=== PATIENT | female | born 1955 ===

== ENCOUNTER → 2023-09-10 15:10 | Outpatient (CLI) | payer OTHER, SELFPAY ==
[2023-09-10 16:11] LABS: Add Manual Diff / Slide Review NO; Basophils Absolute Auto 100 /uL (0-100); Basophils Percent Auto 1.4 % (0-2); Eosinophils Absolute Auto 100 /uL (0-450); Eosinophils Percent Auto 2.1 % (2-4); Hematocrit 40.6 % (36-46); Hemoglobin 13.5 g/dL (12.0-16.0); Lymphocytes Absolute Auto 1600 /uL (1100-4500); Lymphocytes Percent Auto 27.9 % (25-40); Mean Corpuscular HGB Conc 33.3 % (30-36); Mean Corpuscular Hemoglobin 29.9 PG (26-34); Mean Corpuscular Volume 89.8 fL (80-100); Monocytes Absolute Auto 400 /uL (0-900); Monocytes Percent Auto 6.4 % (3-14); Neutrophils Absolute Auto 3500 /uL (1500-7000); Neutrophils Percent Auto 62.2 % (50-75); Platelet Count 227 X10^3/uL (150-400); Red Blood Cell Count 4.52 X10^6/uL (4.0-5.2); Red Cell Distribution Width 13.8 % (11.6-14.8); White Blood Cell Count 5.6 X10^3/uL (4.5-11.0)
[2023-09-10 16:19] LABS: Hemoglobin A1C% w Est Avg Glu 6.3 % (4.0-6.0)
[2023-09-10 16:38] LABS: Alanine Aminotransferase 25 IU/L (<35); Albumin 4.2 g/dL (3.5-5.0); Albumin Globulin Ratio 1.1 (1.0-2.8); Alkaline Phosphatase 70 U/L (38-126); Aspartate Aminotransferase 30 IU/L (14-36); BUN Creatinine Ratio 29.7 (6-22); Bilirubin Total 0.6 mg/dL (0.2-1.3); Blood Urea Nitrogen 22 mg/dL (7-17); Calcium 9.9 mg/dL (8.4-10.2); Carbon Dioxide 25 mmol/L (22-32); Chloride 105 mmol/L (98-107); Cholesterol 188 mg/dL (140-199); Estimated Glomerular Filt Rate > 60 mL/min (>60); Globulin 3.7 g/dL (1.7-4.1); Glucose 135 mg/dL (80-110); HDL Cholesterol 67 mg/dL (40-60); HEMOLYSIS < 15 (0-50); LDL Cholesterol Calculated 106 mg/dL (<100); Potassium 3.7 mmol/L (3.4-5.1); Sodium 140 mmol/L (137-145); Total Protein 7.9 g/dL (6.3-8.2); Triglycerides 74 mg/dL (35-150)
[2023-09-10 16:49] LABS: Vitamin D 25 Hydroxy (D3) 35.1 ng/mL (30.0-100.0)
[2023-09-10 17:21] LABS: Hep C Virus Ab w/Reflex Quant NEGATIVE s/c (NEGATIVE)
[2023-09-10 19:34] LABS: Creatinine Urine Random 92.3 mg/dL
[2023-09-10 19:39] LABS: Microalbumi Creatinin Ratio Ur 29.2 ug/mg CR (<30); Microalbumin Urine Random 2.7 mg/dL (0-1.6)
== END ==
PROVIDERS: PCP Family Medicine; Referring Provider Family Medicine; Visit Provider Family Medicine
DX: Z00.00 Encounter for general adult medical examination without abnormal findings (principal); E55.9 Vitamin D deficiency, unspecified; I10 Essential (primary) hypertension; Z86.73 Personal history of transient ischemic attack (TIA), and cerebral infarction without residual deficits; Z11.59 Encounter for screening for other viral diseases
CPT/HCPCS: 36415; 80053; 80061; 82043; 82306; 82570; 83036; 85025; 86803

== ENCOUNTER → 2025-02-20 09:59 | Outpatient (CLI) | payer MEDICARE, SELFPAY ==
[2025-02-20 10:37] LABS: Add Manual Diff / Slide Review NO; Basophils Absolute Auto 100 /uL (0-100); Basophils Percent Auto 1.1 % (0-2); Eosinophils Absolute Auto 100 /uL (0-450); Eosinophils Percent Auto 1.4 % (2-4); Hematocrit 39.5 % (36-46); Hemoglobin 13.1 g/dL (12.0-16.0); Lymphocytes Absolute Auto 1600 /uL (1100-4500); Mean Corpuscular HGB Conc 33.2 % (30-36); Mean Corpuscular Hemoglobin 29.8 PG (26-34); Mean Corpuscular Volume 89.7 fL (80-100); Monocytes Absolute Auto 500 /uL (0-900); Neutrophils Absolute Auto 4500 /uL (1500-7000); Neutrophils Percent Auto 66.5 % (50-75); Platelet Count 284 X10^3/uL (150-400); Red Cell Distribution Width 13.8 % (11.6-14.8); White Blood Cell Count 6.7 X10^3/uL (4.5-11.0)
[2025-02-20 11:04] LABS: HEMOLYSIS < 15 (0-50); Iron 70 ug/dL (37-170)
[2025-02-20 11:09] LABS: Alanine Aminotransferase 25 IU/L (<35); Albumin 4.3 g/dL (3.5-5.0); Albumin Globulin Ratio 1.4 (1.0-2.8); Alkaline Phosphatase 86 U/L (38-126); Aspartate Aminotransferase 32 IU/L (14-36); BUN Creatinine Ratio 29.4 (6-22); Bilirubin Total 0.9 mg/dL (0.2-1.3); Blood Urea Nitrogen 20 mg/dL (7-17); Calcium 9.8 mg/dL (8.4-10.2); Carbon Dioxide 24 mmol/L (22-32); Chloride 105 mmol/L (98-107); Cholesterol 223 mg/dL (140-199); Estimated Glomerular Filt Rate > 60 mL/min (>60); Glucose 109 mg/dL (80-110); HDL Cholesterol 69 mg/dL (40-60); HEMOLYSIS < 15 (0-50); LDL Cholesterol Calculated 140 mg/dL (<100); Potassium 4.1 mmol/L (3.4-5.1); Sodium 139 mmol/L (137-145); Total Protein 7.3 g/dL (6.3-8.2); Triglycerides 70 mg/dL (35-150)
[2025-02-20 11:16] LABS: Percent Iron Saturation 27 % (15-50); Total Iron Binding Capacity 255 ug/dL (265-497); Transferrin 204 mg/dL (206-381)
[2025-02-20 11:36] LABS: Thyroid Stimulating Hormone 0.582 uIU/mL (0.47-4.68)
[2025-02-20 11:40] LABS: Ferritin 49 ng/mL (11-264)
== END ==
PROVIDERS: PCP Student in an Organized Health Care Education/Training Program; Referring Provider Student in an Organized Health Care Education/Training Program; Visit Provider Student in an Organized Health Care Education/Training Program
DX: I10 Essential (primary) hypertension (principal); D64.9 Anemia, unspecified; E78.00 Pure hypercholesterolemia, unspecified; R73.03 Prediabetes
CPT/HCPCS: 36415; 80053; 80061; 82728; 83540; 83550; 84443; 85025

== ENCOUNTER → 2025-04-04 13:35 | Outpatient (CLI) | payer MEDICARE, SELFPAY ==
--- NOTE | 2025-04-04 13:35 | DI.RAD.S_ITS ---
PROCEDURE: XR CHEST 2V INDICATIONS: Cough TECHNIQUE: 2 views of the chest were acquired. COMPARISON: None. FINDINGS: Surgical changes and devices: None. Lungs and pleura: Lungs are clear. No pleural effusions or pneumothorax. Mediastinum: Mediastinal contours are normal. Heart size is normal. Bones and chest wall: No suspicious bony abnormalities. Soft tissues appear unremarkable. IMPRESSION: No acute cardiopulmonary abnormality is seen. Dictated by: Obi Ren M.D. on 04/05/2025 at 17:06 Approved by: Obi Ren M.D. on 04/05/2025 at 17:07
== END ==
PROVIDERS: PCP Student in an Organized Health Care Education/Training Program; Referring Provider Nurse Practitioner Family; Visit Provider Nurse Practitioner Family
DX: R05.9 Cough, unspecified (principal)
CPT/HCPCS: 71046

== ENCOUNTER → 2025-04-16 09:47 | Outpatient (CLI) | payer MEDICARE, SELFPAY ==
--- NOTE | 2025-04-16 09:48 | DI.RAD.S_ITS ---
PROCEDURE: XR HIP W PEL IF DONE RT 2V INDICATIONS: Right hip pain TECHNIQUE: AP pelvis with lateral view(s) of the right hip(s). COMPARISON: None. FINDINGS: Bones: No fractures or dislocations. Pelvic ring appears intact. No suspicious bony lesions. Moderate bilateral degenerative hip joint space narrowing. No erosions. Soft tissues: The visualized bowel gas pattern is normal. No suspicious soft tissue calcifications. 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 on 04/16/2025 at 12:11 Approved by: Betty Fox M.D. on 04/16/2025 at 12:12
== END ==
PROVIDERS: PCP Student in an Organized Health Care Education/Training Program; Referring Provider Nurse Practitioner Family; Visit Provider Nurse Practitioner Family
DX: M25.551 Pain in right hip (principal); M24.9 Joint derangement, unspecified
CPT/HCPCS: 73502

== ENCOUNTER → 2025-05-02 09:17 | Outpatient (CLI) | payer MEDICARE, SELFPAY ==
--- NOTE | 2025-05-02 09:19 | DI.MRI.S_ITS ---
PROCEDURE: MR HIP RT WO CON INDICATIONS: Right hip pain TECHNIQUE: Noncontrast coronal T1 spin echo and STIR through the bony pelvis. Coronal and axial T2 fast spin echo with fat saturation, sagittal T1 spin echo, and oblique axial T2 fast spin echo with fat saturation through the hip. COMPARISON: [facility], CR, XR HIP W PEL RT 2V, 04/16/2025, 9:43. FINDINGS: Image quality: Excellent. Bones and joints: Marrow signal of the visualized lower lumbar spine is unremarkable. There is a T2 hyperintense fat containing lesion in the sacrum or vertebral body (3:9), favoring to represent under vertebral hemangioma. Mild degenerative changes of bilateral sacroiliac joint with subchondral marrow edema, right greater than left. No acute fracture or dislocation of either hip. No avascular necrosis of either femoral head. Mild degenerative changes of bilateral hips. Tendons and ligaments: The right iliopsoas tendon is unremarkable. Muscle edema of the right rectus femoris, concerning for right ischial femoral impingement. Low- grade tear of the right hamstring tendon origin, at the tuberosity insertion. The tendon of the right gluteal minimus is intact. Full-thickness, near full width tear of the right gluteal medius, at the right greater trochanteric insertion. Moderate right greater trochanteric bursitis. Labrum and cartilage: Superior labral tear, extending anteriorly to the anterior labrum. Posterior labral tear as well. No paralabral cyst. Soft tissues: Unremarkable IMPRESSION: 1. Mild degenerative changes of the bilateral sacroiliac joint and bilateral hips. 2. Circumferential labral tear of the right hip. No paralabral cyst. 3. Findings concerning for right ischial femoral impingement. 4. Full-thickness, near full width tear of the right gluteal medius at the right greater trochanteric insertion with moderate right greater trochanteric bursitis. Dictated by: Britt Alvarez M.D. on 05/04/2025 at 14:04 Approved by: Britt Alvarez M.D. on 05/04/2025 at 14:12
== END ==
LOC: MRI 09:18
PROVIDERS: Family Provider Student in an Organized Health Care Education/Training Program; PCP Student in an Organized Health Care Education/Training Program; Referring Provider Student in an Organized Health Care Education/Training Program; Visit Provider Student in an Organized Health Care Education/Training Program
DX: S73.191A Other sprain of right hip, initial encounter (principal); M70.61 Trochanteric bursitis, right hip; M47.818 Spondylosis without myelopathy or radiculopathy, sacral and sacrococcygeal region; M25.551 Pain in right hip
CPT/HCPCS: 73721

== ENCOUNTER 2025-05-15 09:00 | Outpatient (RCR) | payer MEDICARE, SELFPAY ==
--- NOTE | 2025-05-07 21:59 | PT.OIE ---
Current Diagnoses Pain in right hip (05/07/25) Past Medical History (Last Updated 09/25/23 @ 17:17 by Jb Garcia MD) Anemia Foot pain History of colon polyps History of stroke History of urinary incontinence Hyperlipidemia Hypertension Kidney stones Paroxysmal A-fib Renal cyst, left Visit Care Team Role Provider Type Geena Morton MD Attending Provider Physician Family Provider Primary Care Provider Referring Provider Specialty: Family Practice Obstetrics Address: [address] [place] [address], [id number] Email: [email or web address] Physical Therapy Initial Evaluation PT-OP-A Visit Information Start: 05/07/25 10:45 Freq: Status: Active Protocol: Document 05/07/25 10:46 TOOL AND DIE REPAIR (Rec: 05/07/25 11:37 TOOL AND DIE REPAIR Laptop) Out-Patient Physical Therapy Visit Information Visit Information Visit Type Initial Evaluation Visit Start Time 10:45 Visit Stop Time 11:33 Visit Number 1 Number of PATCH SETTER Visits 0 Evaluation Information Evaluation Date 05/07/25 PT-OP-B Current Condition Start: 05/07/25 10:45 Freq: Status: Active Protocol: Document 05/07/25 10:46 TOOL AND DIE REPAIR (Rec: 05/07/25 11:37 TOOL AND DIE REPAIR Laptop) Current Condition History of Current Condition Onset Date ~1 month ago Current Complaints R knee/hip pain History of Current Pt goes by [employer]. Pt amb into session without AD, with Condition antalgic gait pattern with quick step on LLE. Pt reports about a month ago she felt pain in R knee which has happened about 10 years ago where she put cream on it and it went away a few days later, however this time the pain did not go away and moved up to her R hip /glute. She cannot recall an event that caused the onset of her pain. She lives in a 2 story house with 2 [facility] and has been unable to walk normally up the stairs, she must primarily use LLE. She went to the doctor and imaging reveals R torn gluteus medius and torn labrum. Pt reports she is very active, moving all day to perform household tasks. 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 Pt also reports standing up from sitting has been very painful and difficult. Has been applying cream and ibuprofen every 6 hours and tried heat for pain control, has not tried ice. Pain is affecting her sleep and is unable to find a comfortable position to fall asleep in and wakes up every 2-3 hours d/t pain. Treatment Goals Patient/Caregiver To not have pain in R hip, to get back to how she was Goals before injury so that she can take care of household and family. PT-OP-C Subjective Start: 05/07/25 10:45 Freq: Status: Active Protocol: Document 05/07/25 10:46 TOOL AND DIE REPAIR (Rec: 05/07/25 11:37 TOOL AND DIE REPAIR Laptop) OP-PT Pain Assessment Comments Pain Comments Standing up from chair: 7-8/10 sharp pain, strongly uses BUEs and most of WB is on LLE. From R glute down back of leg to front of R knee. PT-OP-F Manual Assessment Start: 05/07/25 10:45 Freq: Status: Active Protocol: Document 05/07/25 10:46 TOOL AND DIE REPAIR (Rec: 05/07/25 21:38 TOOL AND DIE REPAIR Laptop) Manual Assessments Other Manual Assessments Other Manual very tender to palpation over entire R glute med and Assessments over R femoral greater trochanter, TFL, and ITB with significant decreased soft tissue mobility and trigger points especially in glute med PT-OP-G Mobility & Gait Start: 05/07/25 10:45 Freq: Status: Active Protocol: Document 05/07/25 10:46 TOOL AND DIE REPAIR (Rec: 05/07/25 21:38 TOOL AND DIE REPAIR Laptop) OP Mobility Evaluation Bed Mobility Supine to and from use of hands to lift RLE onto and off of bed Sit OP Gait Assessment Comments Gait Comments antalgic gait pattern without AD, limited WB on RLE with quick step of LLE and minimal hip flex with adduction compensation PT-OP-H Neuro Start: 05/07/25 10:45 Freq: Status: Active Protocol: Document 05/07/25 10:46 TOOL AND DIE REPAIR (Rec: 05/07/25 11:37 TOOL AND DIE REPAIR Laptop) Sensation Evaluation Comments Summary Comments Pt reports no N/T but has noticed cold R foot since injury and must wear warm sock unlike before injury PT-OP-K Range of Motion Start: 05/07/25 10:45 Freq: Status: Active Protocol: Document 05/07/25 10:46 TOOL AND DIE REPAIR (Rec: 05/07/25 21:38 TOOL AND DIE REPAIR Laptop) Hip Goniometric Range of Motion Hip ROM Limitations Hip ROM Limitations Pain Comments L hip ROM WNL R hip active and passive ROM significantly limited by pain PT-OP-M Strength Start: 05/07/25 10:45 Freq: Status: Active Protocol: Document 05/07/25 10:46 TOOL AND DIE REPAIR (Rec: 05/07/25 11:37 TOOL AND DIE REPAIR Laptop) Hip Strength Hip Manual Muscle Testing R Flexion (L2) 3- Fair- Abduction 2 Poor Comments pain with hip flex, abd, unable to attempt ext L Flexion (L2) 4+ Good+ Knee Strength Knee Manual Muscle Testing R Flexion (S2) 3- Fair- Extension (L3) 3+ Fair+ Comments ext and flex limited by pain AROM 0-100 degrees L Flexion (S2) 5 Normal Extension (L3) 5 Normal Ankle/Foot Strength Ankle and Foot Manual Muscle Testing R Dorsiflexion (L4) 4 Good L Dorsiflexion (L4) 5 Normal PT-OP-Q Treatments Start: 05/07/25 10:45 Freq: Status: Active Protocol: Document 05/07/25 10:46 TOOL AND DIE REPAIR (Rec: 05/07/25 11:37 TOOL AND DIE REPAIR Laptop) Therapeutic Activity Therapeutic Activity Sleep Edu Reps/Minutes 10 Comments Recommended placing pillows between knees for improved comfort when sleepin Gait Training Gait Activity FWW Description Gait training with FWW, posture, and fit of current walker Device Used FWW Level of Assistance spv with VC for decreasing B shoulder elevation Surface even Distance/Duration 50' Treatment Focus decreasing pain in R hip Comments Pt demonstrates improved step through gait pattern vs without AD PT-OP-T Assessment and Plan Start: 05/07/25 10:45 Freq: Status: Active Protocol: Document 05/07/25 10:46 TOOL AND DIE REPAIR (Rec: 05/07/25 11:37 TOOL AND DIE REPAIR Laptop) Physical Therapy Assessment Rehab Potential Rehabilitation Good Potential Evaluation Complexity Number of Personal 1-2 Factors/ Comorbidities Number of Body 1-2 Systems Impaired Clinical Stable Presentation at Evaluation Impairments Impairments Activity Tolerance,Functional Activities,Functional Mobility,Gait,Pain,ROM,Sensation,Soft Tissue Mobility, Strength,Transfers Goals 3 Impairment STS Impairment 30s STS test Tool Smith Goal (LTG) Pt will score at least 13-15 on 30s STS test to demonstrate norms for age group and improved functional mobility LTG Duration 12 2 Impairment Stairs Impairment Step to pattern d/t pain Short Term Goal (STG Pt will improve ability and quality of ascend/ ) descending of stairs to perform 12 6 stairs with reciprocal pattern with use of 1 HR in order to perform housekeeping to second story of house. STG Duration 6 weeks Care Home Goal (LTG) Pt will improve ability and quality of ascend/descend of stairs to perform x6 6 stairs without HR with reciprocal pattern ind in order to enter home/exit home multiple times/day safely. LTG Duration 12 1 Impairment Gait Impairment Antalgic gait pattern Care Home Goal (LTG) Pt will improve gait to normal gait pattern without impairment and without AD to amb 150' on uneven surface ind. LTG Duration 12 weeks Assessment Summary Assessment Pt presents with non-traumatic torn R glute medius and labrum with impaired R hip and knee strength and AROM, impaired gait, decreased soft tissue mobility of R glute med, TFL, and ITB, impaired functional mobility, and significantly limited by pain and decreased activity tolerance. 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 Physical Therapy Plan Frequency and Duration Frequency of 2x/Week Treatment Duration of 12 treatment (weeks) Plan of Care Start 05/07/25 Date Plan of Care End 07/30/25 Date Therapeutic Interventions Therapeutic Balance Training,Gait Training,Home Exercise Program, Interventions Manual Therapy,Neuromuscular Re-education,Sensory Integration,Soft Tissue Mobilization,Therapeutic Activities,Therapeutic Exercises Modalities Cold Pack/Ice Massage,Electric Stimulation,Hot Packs, Iontophoresis,Traction- Mechanical,Ultrasound Next Visit Focus/Plan Next Note Type Treatment Note Next Visit Plan stair assessment/training, 30s STS test, ionto to R hip
--- NOTE | 2025-05-07 21:59 | PT.OPPOC ---
Physical, Occupational & Speech Therapy At [facility] Current Diagnoses Pain in right hip (05/07/25) Visit Care Team Role Provider Type Geena Morton MD Attending Provider Physician Family Provider Primary Care Provider Referring Provider Specialty: Family Practice Obstetrics Address: [address] [place] [address], [id number] Email: [email or web address] Plan Of Care PT-OP-B Current Condition Start: 05/07/25 10:45 Freq: Status: Active Protocol: Document 05/07/25 10:46 RESTAURANT AREA MANAGER (Rec: 05/07/25 11:37 RESTAURANT AREA MANAGER Laptop) Current Condition History of Current Condition Onset Date ~1 month ago Current Complaints R knee/hip pain History of Current Pt goes by [employer]. Pt amb into session without AD, with Condition antalgic gait pattern with quick step on LLE. Pt reports about a month ago she felt pain in R knee which has happened about 10 years ago where she put cream on it and it went away a few days later, however this time the pain did not go away and moved up to her R hip /glute. She cannot recall an event that caused the onset of her pain. She lives in a 2 story house with 2 [facility] and has been unable to walk normally up the stairs, she must primarily use LLE. She went to the doctor and imaging reveals R torn gluteus medius and torn labrum. Pt reports she is very active, moving all day to perform household tasks. 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 Pt also reports standing up from sitting has been very painful and difficult. Has been applying cream and ibuprofen every 6 hours and tried heat for pain control, has not tried ice. Pain is affecting her sleep and is unable to find a comfortable position to fall asleep in and wakes up every 2-3 hours d/t pain. Treatment Goals Patient/Caregiver To not have pain in R hip, to get back to how she was Goals before injury so that she can take care of household and family. PT-OP-T Assessment and Plan Start: 05/07/25 10:45 Freq: Status: Active Protocol: Document 05/07/25 10:46 RESTAURANT AREA MANAGER (Rec: 05/07/25 11:37 RESTAURANT AREA MANAGER Laptop) Physical Therapy Assessment Rehab Potential Rehabilitation Good Potential Evaluation Complexity Number of Personal 1-2 Factors/ Comorbidities Number of Body 1-2 Systems Impaired Clinical Stable Presentation at Evaluation Impairments Impairments Activity Tolerance,Functional Activities,Functional Mobility,Gait,Pain,ROM,Sensation,Soft Tissue Mobility, Strength,Transfers Goals 3 Impairment STS Impairment 30s STS test Pl[employer] Tinner Goal (LTG) Pt will score at least 13-15 on 30s STS test to demonstrate norms for age group and improved functional mobility LTG Duration 12 2 Impairment Stairs Impairment Step to pattern d/t pain Short Term Goal (STG Pt will improve ability and quality of ascend/ ) descending of stairs to perform 12 6 stairs with reciprocal pattern with use of 1 HR in order to perform housekeeping to second story of house. STG Duration 6 weeks [employer]inner Goal (LTG) Pt will improve ability and quality of ascend/descend of stairs to perform x6 6 stairs without HR with reciprocal pattern ind in order to enter home/exit home multiple times/day safely. LTG Duration 12 1 Impairment Gait Impairment Antalgic gait pattern Plumber [employer] Tinner Goal (LTG) Pt will improve gait to normal gait pattern without impairment and without AD to amb 150' on uneven surface ind. LTG Duration 12 weeks Assessment Summary Assessment Pt presents with non-traumatic torn R glute medius and labrum with impaired R hip and knee strength and AROM, impaired gait, decreased soft tissue mobility of R glute med, TFL, and ITB, impaired functional mobility, and significantly limited by pain and decreased activity tolerance. 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 Physical Therapy Plan Frequency and Duration Frequency of 2x/Week Treatment Duration of 12 treatment (weeks) Plan of Care Start 05/07/25 Date Plan of Care End 07/30/25 Date Therapeutic Interventions Therapeutic Balance Training,Gait Training,Home Exercise Program, Interventions Manual Therapy,Neuromuscular Re-education,Sensory Integration,Soft Tissue Mobilization,Therapeutic Activities,Therapeutic Exercises Modalities Cold Pack/Ice Massage,Electric Stimulation,Hot Packs, Iontophoresis,Traction- Mechanical,Ultrasound Next Visit Focus/Plan Next Note Type Treatment Note Next Visit Plan stair assessment/training, 30s STS test, ionto to R hip Plan of Care Dates Plan of Care Start Date 05/07/25 Plan of Care End Date 07/30/25 Electronically Signed by: Isis Arias, PT 05/07/25 [id number] If you are in agreement with this Plan of Care, please return a signed and dated copy. I have reviewed this Plan of Care and certify that the skilled therapy services above are required to meet the patient?s needs. Physician Signature Date Printed Name and Credentials Clinical Instructor Signature Printed Name and Credentials
--- NOTE | 2025-05-13 18:27 | PT.OTN ---
Current Diagnoses Pain in right hip (05/13/25) Physical Therapy Treatment Note PT-OP-A Visit Information Start: 05/07/25 10:45 Freq: Status: Active Protocol: Document 05/13/25 16:17 PAINT TESTER (Rec: 05/13/25 17:13 PAINT TESTER Laptop) Out-Patient Physical Therapy Visit Information Visit Information Visit Type Treatment Note Visit Start Time 16:17 Visit Stop Time 17:10 Visit Number 2 Number of WOOD BORING MACHINE OPERATOR Visits 0 Evaluation Information Evaluation Date 05/07/25 PT-OP-B Current Condition Start: 05/07/25 10:45 Freq: Status: Active Protocol: Document 05/07/25 10:46 PAINT TESTER (Rec: 05/07/25 11:37 PAINT TESTER Laptop) Current Condition History of Current Condition Onset Date ~1 month ago Current Complaints R knee/hip pain History of Current Pt goes by Fanta. Pt amb into session without AD, with Condition antalgic gait pattern with quick step on LLE. Pt reports about a month ago she felt pain in R knee which has happened about 10 years ago where she put cream on it and it went away a few days later, however this time the pain did not go away and moved up to her R hip /glute. She cannot recall an event that caused the onset of her pain. She lives in a 2 story house with 2 DANA and has been unable to walk normally up the stairs, she must primarily use LLE. She went to the doctor and imaging reveals R torn gluteus medius and torn labrum. Pt reports she is very active, moving all day to perform household tasks. 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 Pt also reports standing up from sitting has been very painful and difficult. Has been applying cream and ibuprofen every 6 hours and tried heat for pain control, has not tried ice. Pain is affecting her sleep and is unable to find a comfortable position to fall asleep in and wakes up every 2-3 hours d/t pain. Treatment Goals Patient/Caregiver To not have pain in R hip, to get back to how she was Goals before injury so that she can take care of household and family. PT-OP-C Subjective Start: 05/07/25 10:45 Freq: Status: Active Protocol: Document 05/13/25 16:17 PAINT TESTER (Rec: 05/13/25 17:13 PAINT TESTER Laptop) OP-PT Subjective Patient Comments Patient Comments Pt amb into session without AD and antalgic gait pattern with decreased stance time on RLE. Pt reports she has been resting more and that has helped decrease her pain. Currently at 5/10 pain to R glute. PT-OP-F Manual Assessment Start: 05/07/25 10:45 Freq: Status: Active Protocol: Document 05/07/25 10:46 PAINT TESTER (Rec: 05/07/25 21:38 PAINT TESTER Laptop) Manual Assessments Other Manual Assessments Other Manual very tender to palpation over entire R glute med and Assessments over R femoral greater trochanter, TFL, and ITB with significant decreased soft tissue mobility and trigger points especially in glute med PT-OP-G Mobility & Gait Start: 05/07/25 10:45 Freq: Status: Active Protocol: Document 05/07/25 10:46 PAINT TESTER (Rec: 05/07/25 21:38 PAINT TESTER Laptop) OP Mobility Evaluation Bed Mobility Supine to and from use of hands to lift RLE onto and off of bed Sit OP Gait Assessment Comments Gait Comments antalgic gait pattern without AD, limited WB on RLE with quick step of LLE and minimal hip flex with adduction compensation PT-OP-H Neuro Start: 05/07/25 10:45 Freq: Status: Active Protocol: Document 05/07/25 10:46 PAINT TESTER (Rec: 05/07/25 11:37 PAINT TESTER Laptop) Sensation Evaluation Comments Summary Comments Pt reports no N/T but has noticed cold R foot since injury and must wear warm sock unlike before injury PT-OP-K Range of Motion Start: 05/07/25 10:45 Freq: Status: Active Protocol: Document 05/07/25 10:46 PAINT TESTER (Rec: 05/07/25 21:38 PAINT TESTER Laptop) Hip Goniometric Range of Motion Hip ROM Limitations Hip ROM Limitations Pain Comments L hip ROM WNL R hip active and passive ROM significantly limited by pain PT-OP-M Strength Start: 05/07/25 10:45 Freq: Status: Active Protocol: Document 05/07/25 10:46 PAINT TESTER (Rec: 05/07/25 11:37 PAINT TESTER Laptop) Hip Strength Hip Manual Muscle Testing R Flexion (L2) 3- Fair- Abduction 2 Poor Comments pain with hip flex, abd, unable to attempt ext L Flexion (L2) 4+ Good+ Knee Strength Knee Manual Muscle Testing R Flexion (S2) 3- Fair- Extension (L3) 3+ Fair+ Comments ext and flex limited by pain AROM 0-100 degrees L Flexion (S2) 5 Normal Extension (L3) 5 Normal Ankle/Foot Strength Ankle and Foot Manual Muscle Testing R Dorsiflexion (L4) 4 Good L Dorsiflexion (L4) 5 Normal PT-OP-Q Treatments Start: 05/07/25 10:45 Freq: Status: Active Protocol: Document 05/13/25 16:17 PAINT TESTER (Rec: 05/13/25 17:13 PAINT TESTER Laptop) Cardio Equipment Recumbent Elliptical ([employer] Duration (Minutes) 5 Resistance L1 Seat Position 5 Other NuStep BUE and BLE for warm up Therapeutic Exercises Supine Exercises Heel slides Supine Exercise Name after ice massage Side right Equipment Used towel for decreased resistance Reps/Minutes x10 Comments Added to HEP with HO, pain free range Hip Abd Supine Exercise Name after ice massage Side right Equipment Used towel for decreased resistance Reps/Minutes x10 Comments Added to HEP with HO, pain free range Glute Sets Supine Exercise Name after ice massage Side bilateral Reps/Minutes x10 Comments Added to HEP with HO, pain free range Manual Therapy Treatment Consent Patient gave verbal Yes consent for manual treatment Soft Tissue Mobilization Glute Body Location R glute med, ITB, TFL, lateral HS Intensity/Depth Superficial Body Position Sidelying Comments ice massage then gentle STM and mobility of glute max/ med PT-OP-T Assessment and Plan Start: 05/07/25 10:45 Freq: Status: Active Protocol: Document 05/13/25 16:17 PAINT TESTER (Rec: 05/13/25 17:13 PAINT TESTER Laptop) Physical Therapy Assessment Impairments Impairments Activity Tolerance,Functional Activities,Functional Mobility,Gait,Pain,ROM,Sensation,Soft Tissue Mobility, Strength,Transfers Goals 3 Impairment STS Impairment 30s STS test Assisted Goal (LTG) Pt will score at least 13-15 on 30s STS test to demonstrate norms for age group and improved functional mobility LTG Duration 12 2 Impairment Stairs Impairment Step to pattern d/t pain Short Term Goal (STG Pt will improve ability and quality of ascend/ ) descending of stairs to perform 12 6 stairs with reciprocal pattern with use of 1 HR in order to perform housekeeping to second story of house. STG Duration 6 weeks Assisted Goal (LTG) Pt will improve ability and quality of ascend/descend of stairs to perform x6 6 stairs without HR with reciprocal pattern ind in order to enter home/exit home multiple times/day safely. LTG Duration 12 1 Impairment Gait Impairment Antalgic gait pattern Assisted Goal (LTG) Pt will improve gait to normal gait pattern without impairment and without AD to amb 150' on uneven surface ind. LTG Duration 12 weeks Progress Towards Goals Progress Towards Progressing Toward Goals Goals Assessment Summary Assessment Pt tolerated all treatment well without pain during NuStep with very slow motion, improved pain during ice massage and light STM, and tolerated supine hip strengthening exercises well with pt reporting surprise at decreased pain with movement, HEP given. Pt did not report number of pain after session but reports improved from 5/10 at beginning of session. Encouraged pt to bring FWW to next PT session for decreased WB on RLE. Physical Therapy Plan Frequency and Duration Frequency of 2x/Week Treatment Duration of 12 treatment (weeks) Plan of Care Start 05/07/25 Date Plan of Care End 07/30/25 Date Therapeutic Interventions Therapeutic Balance Training,Gait Training,Home Exercise Program, Interventions Manual Therapy,Neuromuscular Re-education,Sensory Integration,Soft Tissue Mobilization,Therapeutic Activities,Therapeutic Exercises Modalities Cold Pack/Ice Massage,Electric Stimulation,Hot Packs, Iontophoresis,Traction- Mechanical,Ultrasound Next Visit Focus/Plan Next Note Type Treatment Note Next Visit Plan increase resistance to L2 or increased time >5 mins on NuStep, ice massage at beginning of session, gently progress R hip exercises from supine to against gravity as tolerated without pain. Assess 30s STS test
--- NOTE | 2025-05-15 09:55 | PT.OTN ---
Current Diagnoses Pain in right hip (05/15/25) Physical Therapy Treatment Note PT-OP-A Visit Information Start: 05/07/25 10:45 Freq: Status: Active Protocol: Document 05/15/25 09:05 AB (Rec: 05/15/25 09:52 AB Laptop) Out-Patient Physical Therapy Visit Information Visit Information Visit Type Treatment Note Visit Note Access Code [email or web address] Visit Start Time 09:04 Visit Stop Time 09:49 Visit Number 3 Number of LEATHER SEASONER Visits 1 PT-OP-B Current Condition Start: 05/07/25 10:45 Freq: Status: Active Protocol: Document 05/07/25 10:46 SALES OPERATIONS ANALYST (Rec: 05/07/25 11:37 SALES OPERATIONS ANALYST Laptop) Current Condition History of Current Condition Onset Date ~1 month ago Current Complaints R knee/hip pain History of Current Pt goes by Fanta. Pt amb into session without AD, with Condition antalgic gait pattern with quick step on LLE. Pt reports about a month ago she felt pain in R knee which has happened about 10 years ago where she put cream on it and it went away a few days later, however this time the pain did not go away and moved up to her R hip /glute. She cannot recall an event that caused the onset of her pain. She lives in a 2 story house with 2 DANA and has been unable to walk normally up the stairs, she must primarily use LLE. She went to the doctor and imaging reveals R torn gluteus medius and torn labrum. Pt reports she is very active, moving all day to perform household tasks. 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 Pt also reports standing up from sitting has been very painful and difficult. Has been applying cream and ibuprofen every 6 hours and tried heat for pain control, has not tried ice. Pain is affecting her sleep and is unable to find a comfortable position to fall asleep in and wakes up every 2-3 hours d/t pain. Treatment Goals Patient/Caregiver To not have pain in R hip, to get back to how she was Goals before injury so that she can take care of household and family. PT-OP-C Subjective Start: 05/07/25 10:45 Freq: Status: Active Protocol: Document 05/15/25 09:05 AB (Rec: 05/15/25 09:52 AB Laptop) OP-PT Subjective Patient Comments Patient Comments Patient rates R knee pain 4/10 start of of session, ambulates into session with antalgic gait, increased trunk side bend, Patient reports hip pain with stairs, standing up and getting in andout of car. PT-OP-F Manual Assessment Start: 05/07/25 10:45 Freq: Status: Active Protocol: Document 05/07/25 10:46 SALES OPERATIONS ANALYST (Rec: 05/07/25 21:38 SALES OPERATIONS ANALYST Laptop) Manual Assessments Other Manual Assessments Other Manual very tender to palpation over entire R glute med and Assessments over R femoral greater trochanter, TFL, and ITB with significant decreased soft tissue mobility and trigger points especially in glute med PT-OP-G Mobility & Gait Start: 05/07/25 10:45 Freq: Status: Active Protocol: Document 05/07/25 10:46 SALES OPERATIONS ANALYST (Rec: 05/07/25 21:38 SALES OPERATIONS ANALYST Laptop) OP Mobility Evaluation Bed Mobility Supine to and from use of hands to lift RLE onto and off of bed Sit OP Gait Assessment Comments Gait Comments antalgic gait pattern without AD, limited WB on RLE with quick step of LLE and minimal hip flex with adduction compensation PT-OP-H Neuro Start: 05/07/25 10:45 Freq: Status: Active Protocol: Document 05/07/25 10:46 SALES OPERATIONS ANALYST (Rec: 05/07/25 11:37 SALES OPERATIONS ANALYST Laptop) Sensation Evaluation Comments Summary Comments Pt reports no N/T but has noticed cold R foot since injury and must wear warm sock unlike before injury PT-OP-K Range of Motion Start: 05/07/25 10:45 Freq: Status: Active Protocol: Document 05/07/25 10:46 SALES OPERATIONS ANALYST (Rec: 05/07/25 21:38 SALES OPERATIONS ANALYST Laptop) Hip Goniometric Range of Motion Hip ROM Limitations Hip ROM Limitations Pain Comments L hip ROM WNL R hip active and passive ROM significantly limited by pain PT-OP-M Strength Start: 05/07/25 10:45 Freq: Status: Active Protocol: Document 05/07/25 10:46 SALES OPERATIONS ANALYST (Rec: 05/07/25 11:37 SALES OPERATIONS ANALYST Laptop) Hip Strength Hip Manual Muscle Testing R Flexion (L2) 3- Fair- Abduction 2 Poor Comments pain with hip flex, abd, unable to attempt ext L Flexion (L2) 4+ Good+ Knee Strength Knee Manual Muscle Testing R Flexion (S2) 3- Fair- Extension (L3) 3+ Fair+ Comments ext and flex limited by pain AROM 0-100 degrees L Flexion (S2) 5 Normal Extension (L3) 5 Normal Ankle/Foot Strength Ankle and Foot Manual Muscle Testing R Dorsiflexion (L4) 4 Good L Dorsiflexion (L4) 5 Normal PT-OP-Q Treatments Start: 05/07/25 10:45 Freq: Status: Active Protocol: Document 05/15/25 09:05 AB (Rec: 05/15/25 09:52 AB Laptop) Cardio Equipment Recumbent Elliptical ([employer]) Duration (Minutes) 5 Resistance L1 Seat Position 7 Other NuStep BUE and BLE for warm up Therapeutic Exercises Supine Exercises bridge Side bilateral Resistance level 2 band Reps/Minutes X 10 without band X 10 with level 2 band Sidelying Exercises reverse clamshell Sidelying Exercise Pillow between knees, not roosevelt without pillow Name Side right Equipment Used X 10 Comments verbal cues clamshell Side right Reps/Minutes X 10 Comments verbal cues Standing Exercises sit to stand Standing Exercise HEP Name Side bilateral Reps/Minutes X 3 and X 5 Comments Pt ed mech sit to stand and self tactile cues for hip hinge Manual Therapy Treatment Consent Patient gave verbal Yes consent for manual treatment Soft Tissue Mobilization Glute Body Location R glute med, Intensity/Depth Superficial Body Position Sidelying Comments ice massage then gentle STM and mobility of glute to moderate massage Manual Techniques MET for R AI L PI and pubic Type for AI PI R and pubic shotgun Reps/Duration 6 X 6 sec each PT-OP-T Assessment and Plan Start: 05/07/25 10:45 Freq: Status: Active Protocol: Document 05/15/25 09:05 AB (Rec: 05/15/25 09:52 AB Laptop) Physical Therapy Assessment Goals 3 Impairment STS Impairment 30s STS test Assisted Goal (LTG) Pt will score at least 13-15 on 30s STS test to demonstrate norms for age group and improved functional mobility LTG Duration 12 2 Impairment Stairs Impairment Step to pattern d/t pain Short Term Goal (STG Pt will improve ability and quality of ascend/ ) descending of stairs to perform 12 6 stairs with reciprocal pattern with use of 1 HR in order to perform housekeeping to second story of house. STG Duration 6 weeks Assisted Goal (LTG) Pt will improve ability and quality of ascend/descend of stairs to perform x6 6 stairs without HR with reciprocal pattern ind in order to enter home/exit home multiple times/day safely. LTG Duration 12 1 Impairment Gait Impairment Antalgic gait pattern Assisted Goal (LTG) Pt will improve gait to normal gait pattern without impairment and without AD to amb 150' on uneven surface ind. LTG Duration 12 weeks Assessment Summary Assessment Patient able to transfer sit to stand with improved mechanics and reports of decreased pain Physical Therapy Plan Frequency and Duration Frequency of 2x/Week Treatment Duration of 12 treatment (weeks) Plan of Care Start 05/07/25 Date Plan of Care End 07/30/25 Date Therapeutic Interventions Therapeutic Balance Training,Gait Training,Home Exercise Program, Interventions Manual Therapy,Neuromuscular Re-education,Sensory Integration,Soft Tissue Mobilization,Therapeutic Activities,Therapeutic Exercises Modalities Cold Pack/Ice Massage,Electric Stimulation,Hot Packs, Iontophoresis,Traction- Mechanical,Ultrasound Next Visit Focus/Plan Next Note Type Treatment Note Next Visit Plan increase resistance to L2 or increased time >5 mins on NuStep, ice massage at beginning of session, gently progress R hip exercises from supine to against gravity as tolerated without pain. Assess 30s STS test
--- NOTE | 2025-06-16 08:02 | PT.OPDS ---
Current Diagnoses Pain in right hip (05/15/25) Visit Care Team Role Provider Type Geena Morton MD Attending Provider Physician Family Provider Primary Care Provider Referring Provider Specialty: Family Practice Obstetrics Address: [address] [place] [address] [place], [address] Email: [email or web address] Visit Number Visit Number 3 Discharge Summary PT-OP-B Current Condition Start: 05/07/25 10:45 Freq: Status: Active Protocol: Document 05/07/25 10:46 MANAGER OFFICE (Rec: 05/07/25 11:37 MANAGER OFFICE Laptop) Current Condition History of Current Condition Onset Date ~1 month ago Current Complaints R knee/hip pain History of Current Pt goes by [facility]. Pt amb into session without AD, with Condition antalgic gait pattern with quick step on LLE. Pt reports about a month ago she felt pain in R knee which has happened about 10 years ago where she put cream on it and it went away a few days later, however this time the pain did not go away and moved up to her R hip /glute. She cannot recall an event that caused the onset of her pain. She lives in a 2 story house with 2 DANA and has been unable to walk normally up the stairs, she must primarily use LLE. She went to the doctor and imaging reveals R torn gluteus medius and torn labrum. Pt reports she is very active, moving all day to perform household tasks. 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 Pt also reports standing up from sitting has been very painful and difficult. Has been applying cream and ibuprofen every 6 hours and tried heat for pain control, has not tried ice. Pain is affecting her sleep and is unable to find a comfortable position to fall asleep in and wakes up every 2-3 hours d/t pain. Treatment Goals Patient/Caregiver To not have pain in R hip, to get back to how she was Goals before injury so that she can take care of household and family. PT-OP-C Subjective Start: 05/07/25 10:45 Freq: Status: Active Protocol: Document 05/15/25 09:05 AB (Rec: 05/15/25 09:52 AB Laptop) OP-PT Subjective Patient Comments Patient Comments Patient rates R knee pain 4/10 start of of session, ambulates into session with antalgic gait, increased trunk side bend, Patient reports hip pain with stairs, standing up and getting in andout of car. PT-OP-F Manual Assessment Start: 05/07/25 10:45 Freq: Status: Active Protocol: Document 05/07/25 10:46 MANAGER OFFICE (Rec: 05/07/25 21:38 MANAGER OFFICE Laptop) Manual Assessments Other Manual Assessments Other Manual very tender to palpation over entire R glute med and Assessments over R femoral greater trochanter, TFL, and ITB with significant decreased soft tissue mobility and trigger points especially in glute med PT-OP-G Mobility & Gait Start: 05/07/25 10:45 Freq: Status: Active Protocol: Document 05/07/25 10:46 MANAGER OFFICE (Rec: 05/07/25 21:38 MANAGER OFFICE Laptop) OP Mobility Evaluation Bed Mobility Supine to and from use of hands to lift RLE onto and off of bed Sit OP Gait Assessment Comments Gait Comments antalgic gait pattern without AD, limited WB on RLE with quick step of LLE and minimal hip flex with adduction compensation PT-OP-H Neuro Start: 05/07/25 10:45 Freq: Status: Active Protocol: Document 05/07/25 10:46 MANAGER OFFICE (Rec: 05/07/25 11:37 MANAGER OFFICE Laptop) Sensation Evaluation Comments Summary Comments Pt reports no N/T but has noticed cold R foot since injury and must wear warm sock unlike before injury PT-OP-K Range of Motion Start: 05/07/25 10:45 Freq: Status: Active Protocol: Document 05/07/25 10:46 MANAGER OFFICE (Rec: 05/07/25 21:38 MANAGER OFFICE Laptop) Hip Goniometric Range of Motion Hip ROM Limitations Hip ROM Limitations Pain Comments L hip ROM WNL R hip active and passive ROM significantly limited by pain PT-OP-M Strength Start: 05/07/25 10:45 Freq: Status: Active Protocol: Document 05/07/25 10:46 MANAGER OFFICE (Rec: 05/07/25 11:37 MANAGER OFFICE Laptop) Hip Strength Hip Manual Muscle Testing R Flexion (L2) 3- Fair- Abduction 2 Poor Comments pain with hip flex, abd, unable to attempt ext L Flexion (L2) 4+ Good+ Knee Strength Knee Manual Muscle Testing R Flexion (S2) 3- Fair- Extension (L3) 3+ Fair+ Comments ext and flex limited by pain AROM 0-100 degrees L Flexion (S2) 5 Normal Extension (L3) 5 Normal Ankle/Foot Strength Ankle and Foot Manual Muscle Testing R Dorsiflexion (L4) 4 Good L Dorsiflexion (L4) 5 Normal PT-OP-T Assessment and Plan Start: 05/07/25 10:45 Freq: Status: Active Protocol: Document 06/16/25 07:58 MANAGER OFFICE (Rec: 06/16/25 08:02 MANAGER OFFICE Laptop) Physical Therapy Assessment Assessment Summary Assessment Pt was seen for initial evaluation and a few treatment sessions with PT, was making progress towards goals but called and cancelled all appointments. Physical Therapy Plan Discharge Physical Therapy Discharge Reasons No Longer Attending PT Discharge Comments Pt cancelled her last appointment on June 03 and has not been back to PT since May 15. PT will D/C pt, to continue Physical Therapy pt will need to return with new referral for new evaluation.
== END 2025-06-19 10:16 | disposition home or self-care (01) ==
LOC: PHYS 09:00
PROVIDERS: Family Provider Student in an Organized Health Care Education/Training Program; PCP Student in an Organized Health Care Education/Training Program; Referring Provider Student in an Organized Health Care Education/Training Program; Visit Provider Student in an Organized Health Care Education/Training Program
DX: M25.551 Pain in right hip (principal)
CPT/HCPCS: 97110; 97116; 97140; 97162; 97530

== ENCOUNTER 2025-05-23 11:03 | Emergency (ER) | payer MEDICARE, SELFPAY ==
[2025-05-23] VITALS (9 sets, daily range): BP systolic 137–215; BP diastolic 67–99; PULSE 56–67; RESP 10–19; TEMP 36.6; O2SAT 92–99; BMI 31.1
--- NOTE | 2025-05-23 11:19 | DI.RAD.S_ITS ---
PROCEDURE: XR CHEST 1V INDICATIONS: Chest Pain TECHNIQUE: One view of the chest was acquired. COMPARISON: [facility], CR, XR CHEST 2V, 04/04/2025, 13:42. FINDINGS AND IMPRESSION: Very low lung volumes, limiting evaluation. No dense airspace disease or pleural effusion on this single view study. Prominent heart size which may be related to low lung volumes, not well assessed. Degenerative osseous findings. Dictated by: Devonte Cruz M.D. on 05/23/2025 at 11:03 Approved by: Devonte Cruz M.D. on 05/23/2025 at 11:04
--- NOTE | 2025-05-23 11:24 | EKG_ITS ---
[address] [id number] [place] [address] Test Date: 2025-05-23 Pat Name: Carisa Kevin Department: [facility] Room: Gender: Female Coding Educator: LIZZIE : 1955 Requested By: Order Number: [id number] Reading MD: Brenton Givens MD Measurements Intervals [place] Rate: 63 P: 18 SD: 166 QRS: -12 QRSD: 76 T: 144 QT: 436 QTc: 446 Interpretive Statements Normal sinus rhythm Left ventricular hypertrophy with repolarization abnormality ( R in aVL , Romhilt-Irene ) Electronically Signed On 05-24-2025 8:27:21 PDT by Brenton Givens MD
[2025-05-23 11:44] LABS: Add Manual Diff / Slide Review NO; Hematocrit 41.0 % (36-46); Hemoglobin 13.4 g/dL (12.0-16.0); Lymphocytes Absolute Auto 2300 /uL (1100-4500); Mean Corpuscular HGB Conc 32.7 % (30-36); Mean Corpuscular Hemoglobin 29.3 PG (26-34); Mean Corpuscular Volume 89.6 fL (80-100); Platelet Count 277 X10^3/uL (150-400)
[2025-05-23 11:45] LABS: INR 1.0 (0.9-1.3); Prothrombin Time 11.7 SECONDS (9.4-12.5)
[2025-05-23 11:48] LABS: PTT Partial Thromboplastin Tim 27 SECONDS (25.1-36.5)
[2025-05-23 11:50] LABS: Alanine Aminotransferase 28 IU/L (<35); Albumin 4.2 g/dL (3.5-5.0); Albumin Globulin Ratio 1.2 (1.0-2.8); Alkaline Phosphatase 80 U/L (38-126); Blood Urea Nitrogen 22 mg/dL (7-17); Calcium 9.2 mg/dL (8.4-10.2); Carbon Dioxide 28 mmol/L (22-32); Chloride 104 mmol/L (98-107); Creatine Kinase 41 U/L (30-135); Estimated Glomerular Filt Rate > 60 mL/min (>60); Globulin 3.5 g/dL (1.7-4.1); Glucose 114 mg/dL (70-99); HEMOLYSIS < 15 (0-50); Lipase 37 U/L (23-300); Magnesium 1.8 mg/dL (1.6-2.3); Potassium 3.7 mmol/L (3.4-5.1); Sodium 137 mmol/L (137-145); Total Protein 7.7 g/dL (6.3-8.2)
--- NOTE | 2025-05-23 11:59 | DI.CT.S_ITS ---
PROCEDURE: CT HEAD/BRAIN WO CON INDICATIONS: blurry vision elevated bp TECHNIQUE: Noncontrast 4.5 mm thick angled axial sections acquired from the foramen magnum to the vertex, with coronal and sagittal reformats. For radiation dose reduction, the following was used: automated exposure control, adjustment of mA and/or kV according to patient size. COMPARISON: None. FINDINGS: Image quality: Diagnostic CSF spaces: Basal cisterns are patent. Lateral ventricles are symmetric. Volume: Vascular calcifications. 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 Volume loss is present. These findings are [id number] Brain: No intracranial hemorrhage. Vila-white differentiation is grossly maintained. Craniofacial structures: No significant paranasal sinus opacity. IMPRESSION: No acute intracranial pathology. If there is high concern for parenchymal pathology, consider further evaluation with MRI. Dictated by: Devonte Cruz M.D. on 05/23/2025 at 12:19 Approved by: Devonte Cruz M.D. on 05/23/2025 at 12:20
[2025-05-23 12:01] LABS: NT-proBNP (BNP-Adult 18+) 775 pg/mL (<125); Troponin I < 0.012 ng/mL (0.01-0.034)
--- NOTE | 2025-05-23 14:43 | ED.GENADULT ---
HPI - General Adult General Chief complaint: Hypertension Stated complaint: [facility] referred: High BP, vision blurry Time Seen by Provider: 05/23/25 11:14 History of Present Illness HPI narrative: 69-year-old female history of hypertension dyslipidemia brought in today with daughter with concerns of high blood pressure and blurry vision previously history of also atrial fibrillation on Eliquis and metoprolol but no longer at this point and also previously on hydrochlorothiazide lisinopril but not currently. taking at this time patient had a fall recently and has a pending Orthopedic referral for a circumferential labral tear of the right hip and has been taking ibuprofen for pain control. Patient denies active chest pain, shortness of breath, dyspnea on exertion, leg pain, leg swelling, gait instability, weakness in the arms or legs difficulty swallowing. Other than what is stated 14 point review of system is negative Related Data Home Medications ?Medication ?Instructions ?Recorded ?Confirmed atorvastatin 40 mg tablet 40 mg PO DAILY 04/04/25 04/21/25 prednisone 20 mg tablet 20 mg PO DAILY 05/23/25 05/23/25 Previous Rx's ?Medication ?Instructions ?Recorded amlodipine 5 mg tablet 5 mg PO DAILY #90 tabs 09/25/24 benzonatate 200 mg capsule 200 mg PO BID PRN cough #28 caps 04/04/25 hydrocodone 5 mg-acetaminophen 325 1 tab PO Q4-6H PRN pain #20 tabs 05/23/25 mg tablet lisinopril 20 1 tab PO DAILY #30 tabs 05/23/25 mg-hydrochlorothiazide 12.5 mg tablet Allergies Allergy/AdvReac Type Severity Reaction Status Date / Time No Known Drug Allergies Allergy Verified 04/21/25 10:45 Review of Systems Review of Systems ROS Unobtainable: All systems reviewed & are unremarkable except as noted in HPI and below Patient History Medical History (Updated 05/23/25 @ 15:01 by Brenton Cheatham DO) History of colon polyps Foot pain Anemia Kidney stones History of urinary incontinence Renal cyst, left Paroxysmal A-fib Hyperlipidemia History of stroke Hypertension Family History (Updated 09/24/23 @ 19:14 by Eneida Vidales) Mother Hypertension Stroke Exam Narrative Exam Narrative: GENERAL: [69] year old patient appears stated age. Well-developed patient, in mild distress. HEAD: Atraumatic. Normocephalic. EYES: Pupils equal round and reactive. Extraocular motions intact. No scleral icterus. No injection or drainage. ENT: Nose without bleeding, purulent drainage. Throat without erythema, tonsillar hypertrophy or exudate. Airway patent. NECK: Trachea midline. Non tender CARDIOVASCULAR: Regular rate and rhythm without murmurs, gallops, or rubs. RESPIRATORY: Clear to auscultation. Breath sounds equal bilaterally. No wheezes, rales, or rhonchi. GASTROINTESTINAL: Abdomen soft, non-tender, nondistended. EXTREMITIES: No edema or joint tenderness. BACK: Nontender without deformity or crepitance. No flank tenderness. NEURO: AOx3. GCS 15 nonfocal neuro exam SKIN: No rash or erythema of visible areas Initial Vital Signs Initial Vital Signs: Vital Signs Temperature 97.9 F 05/23/25 11:14 Pulse Rate 67 05/23/25 11:14 Respiratory Rate 16 05/23/25 11:14 Blood Pressure 186/94 H 05/23/25 11:14 Pulse Oximetry 98 05/23/25 11:14 Oxygen Delivery Method Room Air 05/23/25 11:14 Course Orders Ordered: ED Orders 05/23/25 11:15 Complete Blood Count AUTO DIFF Stat Comprehensive Metabolic Panel Stat Lipase Stat Magnesium Stat NT-proBNP (BNP-Adult 18+) Stat PTT Partial Thromboplastin Deepak Stat Prothrombin Time INR Stat Troponin & CK Cardiac Panel Stat 05/23/25 11:19 XR chest 1V Stat EKG-12 Lead Stat 05/23/25 11:59 CT head/brain wo con Stat Vital Signs Vital signs: Vital Signs - 8 hr 05/23/25 11:14 05/23/25 13:15 05/23/25 13:16 Temperature 97.9 F Pulse Rate 67 64 Respiratory Rate 16 Blood Pressure 186/94 H Pulse Oximetry 98 92 99 Oxygen Delivery Method Room Air 05/23/25 13:16 05/23/25 13:30 05/23/25 13:31 Temperature Pulse Rate 62 59 L Respiratory Rate 19 12 Blood Pressure 215/99 H Pulse Oximetry 99 99 Oxygen Delivery Method 05/23/25 13:31 05/23/25 14:00 05/23/25 14:01 Temperature Pulse Rate 57 L 56 L Respiratory Rate 10 L 13 Blood Pressure 190/75 H Pulse Oximetry 97 97 Oxygen Delivery Method 05/23/25 14:01 Temperature Pulse Rate Respiratory Rate Blood Pressure 137/67 Pulse Oximetry Oxygen Delivery Method Medical Decision Making Lab Data 05/23/25 11:15 05/23/25 11:15 Labs: Lab Results 05/23/25 Range/Units 11:15 WBC 8.6 (4.5-11.0) X10^3/uL RBC 4.58 (4.0-5.2) X10^6/uL Hgb 13.4 (12.0-16.0) g/dL Hct 41.0 (36-46) % MCV 89.6 (80-100) fL MCH 29.3 (26-34) PG MCHC 32.7 (30-36) % RDW 16.3 H (11.6-14.8) % Plt Count 277 (150-400) X10^3/uL Neut % (Auto) 64.2 (50-75) % Lymph % (Auto) 26.9 (25-40) % Bladen % (Auto) 6.7 (3-14) % Eos % (Auto) 1.7 L (2-4) % Baso % (Auto) 0.5 (0-2) % Neut # (Auto) 5500 (3653-6517) /uL Lymph # (Auto) 2300 (6209-2667) /uL Bladen # (Auto) 600 (0-900) /uL Eos # (Auto) 100 (0-450) /uL Baso # (Auto) 0 (0-100) /uL PT 11.7 (9.4-12.5) SECONDS INR 1.0 (0.9-1.3) APTT 27 (25.1-36.5) SECONDS Sodium 137 (137-145) mmol/L Potassium 3.7 (3.4-5.1) mmol/L Chloride 104 (98-107) mmol/L Carbon Dioxide 28 (22-32) mmol/L BUN 22 H (7-17) mg/dL Creatinine 0.72 (0.52-1.04) mg/dL Estimated GFR > 60 (>60) mL/min BUN/Creatinine Ratio 30.6 H (6-22) Glucose 114 H (70-99) mg/dL Calcium 9.2 (8.4-10.2) mg/dL Magnesium 1.8 (1.6-2.3) mg/dL Total Bilirubin 0.6 (0.2-1.3) mg/dL AST 29 (14-36) IU/L ALT 28 (<35) IU/L Alkaline Phosphatase 80 (38-126) U/L Total Creatine Kinase 41 (30-135) U/L Troponin I < 0.012 (0.01-0.034) ng/mL NT-Pro-B Natriuret Pep 775 H (<125) pg/mL Total Protein 7.7 (6.3-8.2) g/dL Albumin 4.2 (3.5-5.0) g/dL Globulin 3.5 (1.7-4.1) g/dL Albumin/Globulin Ratio 1.2 (1.0-2.8) Lipase 37 (23-300) U/L Imaging Data CT scan - head: Radiologist's Impression: [address] [address] [address] Scan Report Signed Patient: Carisa Kevin MR#: [id number] : 1955 Acct:[id number] Age/Sex: 69 / F Date of Service: 05/23/25 Loc: ED Accession Number: [id number] Procedure: CT head/brain wo con Ordering Provider: Brenton Cheatham D.O. PROCEDURE: CT HEAD/BRAIN WO CON INDICATIONS: blurry vision elevated bp TECHNIQUE: Noncontrast 4.5 mm thick angled axial sections acquired from the foramen magnum to the vertex, with coronal and sagittal reformats. For radiation dose reduction, the following was used: automated exposure control, adjustment of mA and/or kV according to patient size. COMPARISON: None. FINDINGS: Image quality: Diagnostic CSF spaces: Basal cisterns are patent. Lateral ventricles are symmetric. Volume: Vascular calcifications. 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 Volume loss is present. These findings are [id number] Brain: No intracranial hemorrhage. Vila-white differentiation is grossly maintained. Craniofacial structures: No significant paranasal sinus opacity. IMPRESSION: No acute intracranial pathology. If there is high concern for parenchymal pathology, consider further evaluation with MRI. Chest x-ray: Radiologist's Impression: [address] [address] XRay Report Signed Patient: Carisa Kevin MR#: [id number] : 1955 Acct:[id number] Age/Sex: 69 / F Date of Service: 05/23/25 Loc: ED Accession Number: [id number] Procedure: XR chest 1V Ordering Provider: Brenton Cheatham D.O. PROCEDURE: XR CHEST 1V INDICATIONS: Chest Pain TECHNIQUE: One view of the chest was acquired. COMPARISON: [facility], , XR CHEST 2V, 04/04/2025, 13:42. FINDINGS AND IMPRESSION: Very low lung volumes, limiting evaluation. No dense airspace disease or pleural effusion on this single view study. Prominent heart size which may be related to low lung volumes, not well assessed. Degenerative osseous findings. Dictated by: Devonte Cruz M.D. on 05/23/2025 at 11:03 Approved by: Devonte Cruz M.D. on 05/23/2025 at 11:04 ECG Data Interpretation: NSR HR 63 MD 166 QRS [address]-t wave change No previous EKG to compare against MDM Narrative Medical decision making narrative: Vital signs, nurse triage note, medication list, previous ER visits, and all imaging studies reviewed. EKG showed normal sinus rhythm heart rate is 63 no STT wave changes. BNP [address] head showed no acute process. Chest x-ray showed prominent heart size which may be related to low lung volumes and degenerative osseous changes. We will restart patient on lisinopril hydrochlorothiazide and hydrocodone for pain control until patient is able see orthopedic surgeon. Differential diagnosis includes hypertension emergency or urgency, pain management for labral tear, electrolyte derangement. Discharge Plan Departure Patient Disposition: Home Clinical Impression: Hypertension Qualifiers: Hypertension type: primary hypertension Qualified Code(s): I10 - Essential (primary) hypertension Labral tear of hip joint Qualifiers: Encounter type: initial encounter Laterality: right Qualified Code(s): S73.191A - Other sprain of right hip, initial encounter Instructions: DI for High Blood Pressure Activity Restrictions/Additional Instructions: Return with new or worsening symptoms. Take your medicines as directed. Follow up with Orthopedic referral appointment. Prescriptions: New lisinopril-hydrochlorothiazide 20-12.5 mg tablet 1 tab PO DAILY Qty: 30 0RF hydrocodone-acetaminophen 5-325 mg tablet 1 tab PO Q4-6H PRN (Reason: pain) Qty: 20 0RF No Action prednisone 20 mg tablet 20 mg PO DAILY amlodipine 5 mg tablet 5 mg PO DAILY Qty: 90 3RF atorvastatin 40 mg tablet 40 mg PO DAILY benzonatate 200 mg capsule 200 mg PO BID PRN (Reason: cough) Qty: 28 0RF Referrals: Geena Morton MD [Primary Care Provider, Family Practice] Stand Alone Forms: Patient Portal/API
== END 2025-05-23 15:23 | disposition home or self-care (01) ==
PROVIDERS: Emergency Provider Family Medicine; Family Provider Student in an Organized Health Care Education/Training Program; PCP Student in an Organized Health Care Education/Training Program; Referring Provider Student in an Organized Health Care Education/Training Program
DX: I10 Essential (primary) hypertension (principal); S73.191A Other sprain of right hip, initial encounter; H53.8 Other visual disturbances; Z79.01 Long term (current) use of anticoagulants; R07.9 Chest pain, unspecified
CPT/HCPCS: 70450; 71045; 80053; 82550; 83690; 83735; 83880; 84484; 85025; 85610; 85730; 93005; 93010; 99283; 99284

== ENCOUNTER → 2025-06-26 11:10 | Outpatient (CLI) | payer MEDICARE, SELFPAY | LOC: LAB 11:10 | PROVIDERS: PCP Student in an Organized Health Care Education/Training Program; Visit Provider Student in an Organized Health Care Education/Training Program | DX: R30.9 Painful micturition, unspecified (principal) | CPT/HCPCS: 87077; 87086; 87186 ==

== ENCOUNTER → 2025-08-04 14:02 | Outpatient (CLI) | payer OTHER, MEDICARE, SELFPAY | PROVIDERS: PCP Student in an Organized Health Care Education/Training Program; Visit Provider Student in an Organized Health Care Education/Training Program | DX: N30.01 Acute cystitis with hematuria (principal) | CPT/HCPCS: 87077; 87086; 87186 ==